=== PATIENT | female | born 1980 | race Caucasian/White ===

== ENCOUNTER 2018-06-14 19:03 | Emergency (ER) | payer SELFPAY ==
[~2018-06-14] VITALS: Ht 144.8 cm; Wt 72.3 kg
[2018-06-14] MEDS ORDERED: KETOROLAC TROMETHAMINE 30 MG/ML VIAL IM ONE (21:15)
[2018-06-14] MEDS ORDERED: CARBAMIDE PEROXIDE 6.5% 15 ML OTIC SOLUTION AS ONE (21:30)
[2018-06-14 22:15] VITALS: BP 130/72
== END 2018-06-14 22:26 | disposition home or self-care (01) ==
LOC: EMS 19:04
DX: M54.42 Lumbago with sciatica, left side (principal); H61.22 Impacted cerumen, left ear; M79.674 Pain in right toe(s); Z88.1 Allergy status to other antibiotic agents
CPT/HCPCS: 69209; 81002; 81025; 96372; 99283; J1885